=== PATIENT | female | born 1995 | race Caucasian/White ===

== ENCOUNTER 2023-11-14 08:00 | Outpatient (CLI) | payer OTHER ==
[2023-11-14 16:05] LABS: BILIRUBIN,URINE NEGATIVE (NEGATIVE); GLUCOSE, URINE (UA) NEGATIVE (NEGATIVE); KETONES,URINE (UA) NEGATIVE (NEGATIVE); LEUKOCYTE ESTERASE, URINE NEGATIVE (NEGATIVE); NITRITE,URINE NEGATIVE (NEGATIVE); OCCULT BLOOD,URINE NEGATIVE (NEGATIVE); PROTEIN,URINE NEGATIVE (NEGATIVE); UROBILINOGEN,URINE 0.2 (NORMAL) E.U./dL (NORMAL)
[2023-11-14 16:15] LABS: BACTERIA,URINE Moderate /HPF (None Seen); CLARITY,URINE CLEAR (CLEAR); RBC,URINE None Seen /HPF (0-5); SQUAMOUS EPITHELIAL CELL,UR FEW Squamous (<= Few)
== END 2023-11-14 23:59 | disposition home or self-care (01) ==
LOC: LAB.WC 08:00
PROVIDERS: ATTEND Obstetrics & Gynecology
DX: Z34.90 Encounter for supervision of normal pregnancy, unspecified, unspecified trimester (principal)
CPT/HCPCS: 81001; 87086

== ENCOUNTER 2024-06-25 08:03 | Inpatient (IN) ==
[2024-06-25] MEDS ORDERED: miSOPROStoL 200 MCG TABLET BC PRN (08:31)
[2024-06-25] MEDS ORDERED: OXYTOCIN 10 UNIT/ML VIAL IM PRN (08:31)
[2024-06-25] MEDS ORDERED: lidocaine 1% 20 ML MDV ID PRN (08:31)
[2024-06-25] MEDS ORDERED: NIFEdipine 10 MG CAPSULE PO PRN (08:31)
[2024-06-25] MEDS ORDERED: OXYTOCIN/SODIUM CHLORIDE 500 ML IV PRN (08:31)
[2024-06-25] MEDS ORDERED: ONDANSETRON ODT 4 MG TABLET PO PRN (08:31)
[2024-06-25] MEDS ORDERED: miSOPROStoL 200 MCG TABLET PR PRN (08:31)
[2024-06-25] MEDS ORDERED: SODIUM CHLORIDE FLUSH 0.9% 10 ML SYRINGE IVP PRN (08:31)
[2024-06-25] MEDS ORDERED: hydrALAZINE INJ 20 MG/ML VIAL IVP PRN (08:31)
[2024-06-25] MEDS ORDERED: AMPICILLIN 2 GM in SODIUM CHLORIDE 0.9% MINIBAG 100 ML IV ONE (08:31)
[2024-06-25] MEDS ORDERED: LABETALOL 20 MG/4 ML SYRINGE IVP PRN ×3 (08:31)
[2024-06-25] MEDS ORDERED: TRANEXAMIC ACID IN NACL 1,000 MG/100 ML BAG IV PRN (08:31)
[2024-06-25] MEDS ORDERED: TERBUTALINE 1 MG/ML VIAL SUBQ PRN (08:31)
[2024-06-25] MEDS ORDERED: fentaNYL 100 MCG/2 ML VIAL IVP PRN (08:31)
[2024-06-25] MEDS ORDERED: METHYLERGONOVINE 0.2 MG/ML VIAL IM PRN (08:31)
[2024-06-25] MEDS ORDERED: SODIUM CHLORIDE FLUSH 0.9% 10 ML SYRINGE IVP SCH (09:00)
[2024-06-25 09:15] LABS: BASOPHILS # (AUTO) 0.1 10^3/uL (0.0-0.1); BASOPHILS % (AUTO) 0.6 %; EOSINOPHILS # (AUTO) 0.1 10^3/uL (0.0-0.7); EOSINOPHILS % (AUTO) 1.2 %; HCT - HEMATOCRIT 36.3 % (37.0-47.0); HGB - HEMOGLOBIN 11.8 g/dL (12.0-16.0); LYMPHOCYTES % (AUTO) 19.2 %; MEAN CORPUSCULAR HGB CONC 32.5 g/dL (32.0-36.0); MEAN CORPUSCULAR VOLUME 83.1 fL (81.0-99.0); MEAN PLATELET VOLUME 10.4 fL (7.9-10.8); MONOCYTES # (AUTO) 0.6 10^3/uL (0.0-1.0); MONOCYTES % (AUTO) 5.5 %; NEUTROPHILS # (AUTO) 7.7 10^3/uL (1.5-6.6); NEUTROPHILS % (AUTO) 72.6 %; PLT - PLATELET COUNT 221 10^3/uL (130-450); RED BLOOD COUNT 4.37 10^6/uL (4.20-5.40); RED CELL DISTRIBUTION WIDTH 14.6 % (12.0-15.0); WHITE BLOOD COUNT 10.6 x10^3/uL (4.8-10.8)
[2024-06-25 09:38] LABS: ALBUMIN 3.7 g/dL (3.2-5.5); ALBUMIN/GLOBULIN RATIO 1.2 (1.0-2.2); BILIRUBIN,TOTAL 1.2 mg/dL (0.2-1.0); CALCIUM 9.2 mg/dL (8.5-10.3); CREATININE 0.6 mg/dL (0.6-1.3); POTASSIUM 3.6 mmol/L (3.5-4.5); TOTAL PROTEIN 6.7 g/dL (6.4-8.9)
[2024-06-25] MEDS: miSOPROStoL 100 MCG TABLET VG SCH ×2 (09:53→14:00)
[2024-06-25] MEDS ORDERED: AMPICILLIN 1 GM in SODIUM CHLORIDE 0.9% MINIBAG 100 ML IV SCH (13:00)
--- NOTE | 2024-06-25 13:31 | PHARMACY PROGRESS NOTE ---
Best Possible Medication History Admit Date and Time: 06/25/24 [id number] Home Medications Medication Instructions Recorded Confirmed Type vits no.126-ferrous fum 1 tab PO DAILY 12/14/23 06/25/24 History 28 mg iron-folic acid 800 mcg tablet (Classic ) cetirizine 10 mg tablet (Zyrtec) 10 mg PO DAILY PRN allergy symptoms 06/25/24 06/25/24 History Processed by: Pharmacy (Medication reconciliation completed by Robotics SpecialistLynn) Medications reviewed in ED?: No Medication History completed: Yes Patient Interview: Completed Secondary Source(s): Insurance records [facility] Statement: As the person ultimately responsible for medication therapy, providers are able to order a medication from an existing home medication list in [facility] via the "Reconcile Routine" prior to Confirmation of that medication by ground support equipment fitter. Such practice is discouraged except when the physician, in their clinical judgment, deems that a medical need exists for a medication without regard to previous use.
[2024-06-25] MEDS: AMPICILLIN 2 GM in SODIUM CHLORIDE 0.9% MINIBAG 100 ML IV ONE (18:00)
[2024-06-25] MEDS: LACTATED RINGERS 1,000 ML IV PRN (18:00)
--- NOTE | 2024-06-25 20:54 | HISTORY & PHYSICAL EXAMINATION ---
Admit History Visit Reason Visit Reason: Other (admitted for induction at 39 weeks. ) : 2 Parity: 1 Care: positive [facility] Risk/History: positive None Complications This : positive Other (large for gestational age fetus.) Smoking Status: Former smoker Mother's Labs GBS: positive Group B Strep Positive Other Maternal History Other Maternal History: presents for induction of labor. baby large. Mom here from out of town to help. 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 Has child at home. Induction of labor reviewed. wishes to avoid catheter in cervix. that was awful last time. Seems she disassociated for her labor and does not remember anything. agrees miso ago. does desire epidural. last US showed a large baby: biometrics: Biparietal diameter: 9.1 cm, 36 weeks and 6 days, 99% Head circumference: 34.3 cm, 39 weeks and 4 days, greater than 99% Abdominal circumference: 32.5 cm, 36 weeks and 3 days, 99% Femur length: 6.6 cm, 33 weeks and 6 days, 51% Estimated gestational age from initial scan: 33 weeks and 3 days Composite gestational age from present scan: 36 weeks and 5 days Estimated weight and percentile: 2856 g, 98% Measurement variability in biometric dating: +/- 10 days from 12-20 weeks gestation, +/- 2 weeks from 20-30 weeks gestation, +/- 3 weeks at 30 weeks gestation or more. IMPRESSION: Living gestation in breech presentation. Suspected superior placental succenturiate lobe. Normal SONA. Fetus remains large for gestational age with EFW at the 98th percentile based on provided working DANAE of 06/30/2024. 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 They are from [place] and [place]. On [place] since Dec 2022, were also her for a few years previously. Son is 2. - H/o A1DM prior - delivered at 38wk at [place] in [place], 9lb1oz. Early A1C 5.0. Elevated 1hr, 3hr wnl. - Suspected macrosomia - 96.7%tile on anatomy US - growth US 04/22 EFW 2182g, > 99th%tile. - growth US 05/15 EFW 2856 g, 98% and breech - H/o PPD/anxiety - was never on medications, but saw counselor Pre- Weight:176.8 BMI: 30.46 Blood type: O+ Rh: + Antibody: neg CBC: PLT 308 HCT 39.3 HGB 13.1 RUB: immune VZV: immune HBsAg: neg HepC: NR RPR: NR HIV: NR PAP: 02/08/21 - Normal, will obtain PP GC/CT: 12/13 negative HSV:denies in self and partner Genetic testing: [id number] Negative AFP- Negative Covid: 12/2023 Flu:with family at pharmacy 12/20 RSV 05/30/24 requested given 1 yo. FAS: ordered 12/13 Placenta:anterior w/o previa Cord:3VC SONA:17cm EFW:419.3g 96.7% 50gm OGCT: 150 3HR GTT:84 157,152,118 p TDAP:04/05 Breast Pump:04/05 tour: 04/05 3rd trimester CBC- 36.9/287 GBS: ++POS Delivery plan: vaginal delivery at term. She expects likely 2 weeks early. Contraception: declines, will be deploying. OB Visit Log Initial Weight: 176 lb 12.8 oz Date EGA Weight BP Fundal ht Pres HR Movement CTX Edema Cerv Dil Cerv Eff % Sta 12/14/23 11w 4d 174 lb 2 oz(-2 lb 10.8 oz) 110 167 01/11/24 15w 4d 175 lb 8 oz(-1 lb 4.8 oz)175 lb 8 oz(-1 lb 4.8 o z) 110 160 active 02/09/24 19w 5d 178 lb(+1 lb 3.2 oz) 110 155 active 03/07/24 23w 4d 184 lb(+7 lb 3.2 oz) 144 active 04/05/24 27w 5d 189 lb 4 oz(+12 lb 7.2 oz) 29 1 45 active absent absent 04/17/24 29w 3d 188 lb(+11 lb 3.2 oz) 30 133 ac tive occasional 05/01/24 31w 3d 191 lb(+14 lb 3.2 oz) 33 145 ac tive absent absent 05/15/24 33w 3d 198 lb(+21 lb 3.2 oz) 36 Breech 130 ac tive absent absent 05/30/24 35w 4d 200 lb(+23 lb 3.2 oz) 37 130 ac tive absent absent 06/06/24 36w 4d 201 lb(+24 lb 3.2 oz) 38 cephalic 145 ac tive absent absent 06/13/24 37w 4d 202 lb(+25 lb 3.2 oz) cephalic 130 activ e absent absent 06/20/24 38w 4d 203 lb(+26 lb 3.2 oz) 41 cephalic 135 active occas ional absent 2 0 Notes Visit Date: 06/20/24 Last Updated by: Theron Pinon MD Overall feeling well, here today with her mom. Has been having intermittent contractions. Would like SVE today. /high, moderate/posterior. She is scheduled for elective IOL on 06/25. We discussed induction process and consent was signed. We discussed suspected macrosomia, including maternal/ risks. EFW approximately 4200g on exam today, she feels that this baby is bigger than her last which was 9lb1oz. Discussed we would watch her labor progress closely, may recommend delivery if labor not progressing appropriately. We discussed possible increased risk for shoulder dystocia. Discussed risk of her degree maternal tears, brachial plexus injury/brain injury/. She would like to avoid using the cervical ripening balloon if possible, reports she had it last time and it came out in just an hour, she had a severe pain and blacked out. Discussed she can schedule visit for membrane sweep on Monday if she desires. Labor/ movement precautions were reviewed. HPI Diagnosis/Indication for NST: Other (here for labor induction) Current : Vital Signs Temperature 37.2 C 06/25/24 08:48 Pulse Rate 92 06/25/24 08:48 Respiratory Rate 17 06/25/24 08:48 Blood Pressure 119/83 06/25/24 08:48 NST Procedure NST Procedure: Reactive for of 32 weeks gestation or more. NST tracing contains at least two heart rate accelerations that are at least 15 beats per minute above the baseline rate and lasting at least 15 seconds from onset to return to baseline within a twenty minute period. Results and Plan Plan: proceed with labor induction Meds/Allgy Home Medications Ambulatory Orders Medication Instructions Recorded Confirmed vits no.126-ferrous fum 1 tab PO DAILY 12/14/23 06/25/24 28 mg iron-folic acid 800 mcg tablet (Classic ) cetirizine 10 mg tablet (Zyrtec) 10 mg PO DAILY PRN allergy symptoms 06/25/24 06/25/24 Allergies Allergies Allergy/AdvReac Type Severity Reaction Status Date / Time No Known Drug Allergies Allergy Verified 05/15/24 13:04 PFSH Active Problems All Active Problems (Updated 06/25/24 @ 21:06 by Lara Sandra MD) Encounter for elective induction of labor (Acute) Macrosomia (Acute) Glucose intolerance of (Acute) Supervision of other normal (Acute) Medical History Medical History Acute sinusitis, unspecified (04/24/23) History of depression Kidney infection GDM (gestational diabetes mellitus) Family History Family History Maternal grandmother Diabetes Breast cancer Social History Social History (Updated 06/25/24 @ 21:03 by Lara Sandra MD) Smoking Status: Former smoker If you are a former smoker, when did you quit? (Date/Year): 10/2023 How many cigarettes a day do you smoke? (20 cigarettes=1 Pk): 10 Second hand tobacco smoke exposure: No Do you dip or chew tobacco?: No Do you vape?: No Patient requests smoking cessation consult: No Initiate information on smoking cessation: No Living arrangement: At home Marital Status: Living Condition: With family Relationship: Living Situation Details: lives with her Clarence and 2yo son. 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 Level: Independent Do you feel safe in your home environment?: Yes Suffered physical, verbal, emotional, or financial abuse?: No ETOH Use: None Substance Use: denies use Are you sexually active?: Yes Control Method: None Occupation: [employer]. Service: Yes Dates of Service: current POLST Patient has POLST: No Review of Systems Cardiovascular Denies: Irregular heart rate, swelling of feet/ankles or shortness of breath with exertion Respiratory Reports: Cough; Denies: Shortness of breath Gastrointestinal Denies: Nausea or Vomiting Neurological Denies: Headache Physical Abdominal Exam Vital Signs: Temp Pulse Resp BP 37.2 C 92 17 119/83 06/25/24 08:48 06/25/24 08:48 06/25/24 08:48 06/25/24 08:48 Contraction Frequency (min/apart): none Uterine Resting Tone: positive Soft Monitoring Heart Rate Baseline: 135 Strip Review: positive Category I Presentation Presentation: positive Vertex (confirmed by US) Vaginal Exam Membranes: positive Membranes intact Dilation (in cm): unable to reach on my exam. [address] Pinon Station: positive -3 Cervical Position: positive Posterior Speculum Exam Speculum Exam Performed: positive No Plan for Labor Plan For Labor I expect patient to be DC'd or transferred within 96 hours.: Yes Plan for Labor: This note is from 9:30 am. 06/25/24 Conclusion/Plan Problem List (1) Encounter for elective induction of labor: Plan: Admitted for labor induction. Will start with miso 25 mcg vaginally. (2) Macrosomia: Plan: based on last US would be about 4500 grams now. so about 10 pounds. first baby was 9lb 1oz. patient estimates this baby about 9lb 5 oz. I think about 9.5 pounds. Will watch labor curve closely. Plan Miso. Lab Results Lab results reviewed: Yes 06/25/24 08:40 06/25/24 08:40
[2024-06-25] MEDS ORDERED: ROPIVACAINE 0.2% 200 MG/100 ML BAG EP ONE (20:55)
[2024-06-25] MEDS ORDERED: LIDOCAINE 2%-EPI 1:100000 20 ML MDV ONE (20:55)
--- NOTE | 2024-06-25 21:14 | PROVIDER PROGRESS NOTE ---
Labor Progress Note Uterine Monitoring Uterine Monitoring Mode: positive External toco Contraction Intensity: positive Mild to moderate and Other (still no contractions at 1330. 4 hrs after first dose of miso 25 mcg vaginally) Uterine Resting Tone: positive Soft Monitoring Monitor Mode: positive External ultrasound Heart Rate Baseline: 135 Heart Rate Variability: positive Moderate (6-25 bmp) Decelerations: positive None Strip Review: positive Category I Vaginal Exam Dilation (in cm): deferred Labor Progress Note Labor Progress Note/Additional Text: will give 50 mcg miso vaginally as no response to first dose of 25. 06/25/24 13:30
--- NOTE | 2024-06-25 21:16 | PROVIDER PROGRESS NOTE ---
Labor Progress Note Uterine Monitoring Uterine Monitoring Mode: positive External toco Contraction Intensity: positive Mild to moderate (every 2 min) Uterine Resting Tone: positive Soft Monitoring Monitor Mode: positive External ultrasound Heart Rate Variability: positive Moderate (6-25 bmp) Accelerations: positive Present, 15x15 Decelerations: positive None Strip Review: positive Category I Vaginal Exam Dilation (in cm): deferred Labor Progress Note Labor Progress Note/Additional Text: just starting to get uncomfortable with contractions. will start Ampicillin for gbs now. reassess at 10pm. epidural whenever she requests. 06/25/24 17:45
--- NOTE | 2024-06-25 21:17 | PROVIDER PROGRESS NOTE ---
Progress Note Progress Note Progress Note: called to RN to check in. patient about to get epidural. doing well. no or maternal concerns. Will come in to reassess once comfortable and ready for second dose Amp. both of which will be around 10 pm.
[2024-06-25] MEDS: AMPICILLIN 1 GM in SODIUM CHLORIDE 0.9% MINIBAG 100 ML IV SCH (21:43)
[2024-06-25] MEDS ORDERED: NALOXONE 0.4 MG/ML VIAL IVP PRN (21:52)
[2024-06-25] MEDS ORDERED: ROPIVACAINE 0.2% 200 MG/100 ML BAG EP PRN (21:52)
[2024-06-25] MEDS ORDERED: ONDANSETRON 4 MG/2 ML VIAL IVP PRN (21:52)
[2024-06-25] MEDS ORDERED: ePHEDrine 50 MG/ML VIAL IVP PRN (21:52)
--- NOTE | 2024-06-25 21:52 | ANESTHESIA PROCEDURE NOTE ---
Pre-Anesthesia VS, & Labs Diagnosis Surgical Diagnosis:: Active Labor Procedure Procedure: Vaginal delivery Vitals Vital Signs: Temp Pulse Resp BP 37.2 C 92 17 119/83 06/25/24 08:48 06/25/24 08:48 06/25/24 08:48 06/25/24 08:48 NPO NPO: Other (clear liquids) Is Patient ?: Yes Lab Results Current Lab Results: Laboratory Tests 06/25/24 08:40: WBC 10.6, RBC 4.37, Hgb 11.8 L, Hct 36.3 L, MCV 83.1, MCH 27.0, MCHC 32.5, RDW 14.6, Plt Count 221, MPV 10.4, Neut # (Auto) 7.7 H, Lymph # (Auto) 2.0, [place] # (Auto) 0.6, Eos # (Auto) 0.1, Baso # (Auto) 0.1, Absolute Nucleated RBC 0.00, Nucleated RBC % 0.0, Sodium 133 L, Potassium 3.6, Chloride 102, Carbon Dioxide 21, Anion Gap 10.0, BUN 11, Creatinine 0.6, Estimated GFR (MDRD) 117, Glucose 138 H, Calcium 9.2, Total Bilirubin 1.2 H, AST 15, ALT 9 L, Alkaline Phosphatase 130 H, Total Protein 6.7, Albumin 3.7, Globulin 3.0, Albumin/Globulin Ratio 1.2, Blood Type O POSITIVE, Antibody Screen NEGATIVE Lab results reviewed: Yes 06/25/24 08:40 06/25/24 08:40 Meds/Allgy Home Medications Ambulatory Orders Medication Instructions Recorded Confirmed vits no.126-ferrous fum 1 tab PO DAILY 12/14/23 06/25/24 28 mg iron-folic acid 800 mcg tablet (Classic ) cetirizine 10 mg tablet (Zyrtec) 10 mg PO DAILY PRN allergy symptoms 06/25/24 06/25/24 Allergies Allergies Allergy/AdvReac Type Severity Reaction Status Date / Time No Known Drug Allergies Allergy Verified 05/15/24 13:04 PFSH Active Problems All Active Problems Encounter for elective induction of labor (Acute) Macrosomia (Acute) Glucose intolerance of (Acute) Supervision of other normal (Acute) Medical History Medical History Acute sinusitis, unspecified (04/24/23) History of depression Kidney infection GDM (gestational diabetes mellitus) Family History Family History Maternal grandmother Diabetes Breast cancer Social History Social History Smoking Status: Former smoker If you are a former smoker, when did you quit? (Date/Year): 10/2023 How many cigarettes a day do you smoke? (20 cigarettes=1 Pk): 10 Second hand tobacco smoke exposure: No Do you dip or chew tobacco?: No Do you vape?: No Patient requests smoking cessation consult: No Initiate information on smoking cessation: No Living arrangement: At home Marital Status: Living Condition: With family Relationship: Living Situation Details: lives with her Clarence and 2yo son. 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 Level: Independent Do you feel safe in your home environment?: Yes Suffered physical, verbal, emotional, or financial abuse?: No ETOH Use: None Substance Use: denies use Are you sexually active?: Yes Control Method: None Occupation: [employer]. Service: Yes Dates of Service: current POLST Patient has POLST: No Anesthesia Exam (Expanded) Exam General: Alert, Oriented x3 and Cooperative Dental: WNL Mouth Openin Fingerbreadth Neck Mobility: Normal Mallampati classification: II Thyromental Distance: 4-6 cm Plan Plan Anesthesia Type: Epidural Consent for Procedure(s) Verified and Reviewed: Yes Code Status: Attempt Resuscitation ASA Classification ASA classification: 2-Mild systemic disease Is this case an emergency?: No
--- NOTE | 2024-06-25 22:26 | PROVIDER PROGRESS NOTE ---
Labor Progress Note Uterine Monitoring Uterine Monitoring Mode: positive External toco Contraction Frequency (min/apart): 2-3 Contraction Intensity: positive Moderate Monitoring Monitor Mode: positive External ultrasound Heart Rate Baseline: 135 Heart Rate Variability: positive Moderate (6-25 bmp) Accelerations: positive Present, 15x15 Decelerations: positive None Strip Review: positive Category I Vaginal Exam Dilation (in cm): 4 cm with a firmish ring Effacement (%): 70 Station: -3 Cervical Position: Midposition Labor Progress Note Labor Progress Note/Additional Text: comfortable with her epidural. second Ampicillin in. agrees to AROM. this is done with exam and fluid is clear. moderate amount. baby still high but well applied to cervix. Plan to recheck in about 2 hours by RN and see if she needs pitocin.
[2024-06-25] MEDS ORDERED: LACTATED RINGERS 1,000 ML IV SCH (23:00)
[2024-06-26] MEDS: miSOPROStoL 100 MCG TABLET VG SCH (00:33)
[2024-06-26] MEDS: OXYTOCIN/SODIUM CHLORIDE 500 ML IV SCH (00:53)
[2024-06-26] MEDS ORDERED: NALOXONE 0.4 MG/ML VIAL IVP PRN (04:15)
[2024-06-26] MEDS ORDERED: LABETALOL 20 MG/4 ML SYRINGE IVP PRN ×2 (04:15)
[2024-06-26] MEDS ORDERED: OXYTOCIN/SODIUM CHLORIDE 500 ML IV PRN (04:15)
[2024-06-26] MEDS ORDERED: NIFEdipine 10 MG CAPSULE PO PRN (04:15)
[2024-06-26] MEDS ORDERED: LABETALOL 5 MG/1 ML 20 ML MDV IVP PRN (04:15)
[2024-06-26] MEDS ORDERED: hydrALAZINE INJ 20 MG/ML VIAL IVP PRN ×2 (04:15)
--- NOTE | 2024-06-26 04:28 | DELIVERY NOTE ---
Delivery Note Labor Labor: positive Augmented by oxytocin Infant Delivery Method Delivery Method: positive Spontaneous vaginal delivery Cervical Ripening Method Cervical Ripening Method: positive Misoprostil Presentation Presentation: positive Vertex and OA - occiput anterior Nuchal Cord Nuchal Cord: positive Present and Reduced Amniotic Fluid Description Amniotic Fluid Description: positive Moderate meconium (after delivery of the head) Episiotomy Type Episiotomy Type: positive None Laceration Laceration: positive None Delivery Outcome Delivery Date: 06/26/24 Delivery Time: 03:53 Delivery Outcome: positive Livebirth : positive Placed in direct skin contact with mother, Suctioned, Bulb syringe, Stimulated and Howell used sex: positive Male Cord Cord: positive 3 vessels Placenta Placenta: positive Intact, Spontaneous and Other (accessory lobe intact. delivered before the cord was cut) Estimated Blood Loss Estimated Blood Loss (in cc): 500 Post Delivery Events Post Delivery Events: positive No post delivery events Delivery Comments (Free Text/Narrative) Delivery Comments (Free Text/Narrative): Presented for induction 8 am. Miso 25 and nothing happened. miso 50 and lots of contractions every 2-3 minutes. At 9 pm epidural placed. At 10 pm. still only 4 cm. AROM and clear fluid. At midnight, no change. pitocin started. Patient was complete and I was called for delivery at 0326. We got her ready for delivery and she pushed for 10 minutes. Baby delivered OA. Cord around neck x 1 easily reduced. Meconium, very dark with delivery of head. We waited for delivery of shoulders for another contraction and then they came out without dystocia. Baby Chi placed on Nikole's belly. She wanted delayed cord clamping. Her mom called her on the [place] near [facility] and then talked. After about 10 min, there was no bleeding at all and the placenta was in the cervix. I clamped the cord near the placenta and delivered it. About 500 cc of blood came out. Uterus contracted well with massage. Pitocin started in IV. Cord clamped near baby and other clamp moved up. Patient's mom cut the cord all while dad was still on phone. Baby was weighed so dad could know. 4.2 kg, 9#7oz. Apgars 8/9. no lacerations at all. Patient says she had been doing perineal massage with a device she bough from [facility] and felt it had helped. Patient cleaned up and bed put back together. no complications.
[2024-06-26] MEDS: IBUPROFEN 600 MG TABLET PO PRN (06:34)
[2024-06-26] MEDS: ACETAMINOPHEN 500 MG TABLET PO PRN (07:14)
[2024-06-26] MEDS: CETIRIZINE 10 MG TABLET PO PRN (08:44)
[2024-06-26] MEDS: DOCUSATE SODIUM 100 MG CAPSULE PO SCH (08:44)
[2024-06-26] MEDS: SIMETHICONE CHEW 80 MG TABLET PO PRN (11:50)
[2024-06-27] MEDS: ACETAMINOPHEN 500 MG TABLET PO PRN (06:55)
--- NOTE | 2024-06-27 11:55 | Discharge Summary ---
Discharge Summary Admit Date: 06/25/24 Discharge Date: 06/27/24 Discharging Provider: Theron Pinon MD HOSPITAL COURSE Hospital Course: Admission Diagnosis: - SIUP at 39wk - GBS pos - Suspected macrosomia Discharge Diagnosis: - Same, delivered Procedures: Hospital Course: Nikole presented ta 39wk for elective induction of labor. She underwent cervical ripening with misoprostol, and was further augmented with AROM and pitocin. She had an uncomplicated with an EBL 500cc, no lacerations. Her course has been uncomplicated. Condition on Discharge: SUBJECTIVE: day 1 s/p She feels well. Pain is well controlled with current medications. The baby is doing well. She is ambulating well, tolerating normal diet, urinating without difficulty. Lochia is reported as light. OBJECTIVE: Vital signs reviewed GENERAL: NAD CHEST: non labored respirations ABD: soft, non tender, fundus firm EXT: no lower extremity edema; No evidence of DVT LAB & IMAGING STUDIES: See below PLAN: Plan for discharge home with follow up in 1 week, OK for virtual visit. Reviewed home care instructions and medications. Patient counseled regarding signs and symptoms of infection, excessive bleeding, vaginal rest and activity restrictions. Preeclampsia precautions were reviewed. Discussed that additional support is available in our clinic if needed. ALLERGIES Allergies Allergy/AdvReac Type Severity Reaction Status Date / Time No Known Drug Allergies Allergy Verified 05/15/24 13:04 MEDICATIONS Ambulatory Orders Medication Instructions Recorded Confirmed vits no.126-ferrous fum 1 tab PO DAILY 12/14/23 06/25/24 28 mg iron-folic acid 800 mcg tablet (Classic ) cetirizine 10 mg tablet (Zyrtec) 10 mg PO DAILY PRN allergy symptoms 06/25/24 06/25/24 PHYSICAL EXAM AT DISCHARGE Vital Signs: Vital Signs x48h Temp Pulse Resp BP Pulse Ox 06/27/24 12:13 98.1 F 85 20 125/81 99 06/27/24 09:00 98.4 F 98 17 125/80 06/27/24 06:52 207.1 F H 77 17 128/77 LABS 06/25/24 08:40 06/25/24 08:40 FOLLOW UP Follow Up: [facility] clinic in 1 week. TIME SPENT Time Spent in Discharge (Minutes): 20 Discharge Plan Discharge Patient Disposition: Home, Self Care Prescriptions: Continued cetirizine [Zyrtec] 10 mg tablet 10 mg PO DAILY PRN (Reason: allergy symptoms) Classic 28 mg iron- 800 mcg tablet 1 tab PO DAILY Print Language: Lao Patient Instructions: Vaginal After, Childbirth Breast Care, Depression , Change Expect Parents
[2024-06-27 20:52] VITALS: BP 129/84; TEMP 98.6; O2SAT 98
--- NOTE | 2024-06-27 22:46 | Labor Flowsheet ---
Labor Flowsheet Datetime Report Generated by CPN: 06/27/2024 22:45 Datetime: 06/27/2024 20:51 VITAL SIGNS NBP Sys/Ursula/Mean (mmHg): 129 : 84 : 94 Pulse: 90 Datetime: 06/26/2024 03:59 Stage of : Recovery Membranes Ruptured Date/Time: 06/25/2024 22:14 Datetime: 06/26/2024 03:53 Comments: baby Datetime: 06/26/2024 03:51 UTERINE ACTIVITY Monitor Mode: Palpation Frequency (min): 2 ASSESSMENT A Monitor Mode: Telemetry FHR Baseline Rate : 130 Variability: Moderate 6-25 bpm Accelerations: 15X15 Decelerations: Prolonged Datetime: 06/26/2024 03:45 Quality: Strong Pattern: Normal: <= 5 Contractions in 10 Minutes Resting Tone (Palpate): Relaxed Datetime: 06/26/2024 03:43 STAGE 2 Stage 2 Comments: pushing starts Datetime: 06/26/2024 03:41 Communication Comments: bradley removed Datetime: 06/26/2024 03:39 SpO2 (%): 99 LaborFlag: Labor Datetime: 06/26/2024 03:30 Duration (sec): 60-90 Datetime: 06/26/2024 03:25 VAGINAL EXAM Dilatation (cm): 10.0 Effacement (%): 100 Station: 2 Exam by: Emily RN Datetime: 06/26/2024 02:50 MEDICATIONS Pitocin (milliunits): Increased to @ 6 Datetime: 06/26/2024 02:49 Temperature (C): 36.9 Datetime: 06/25/2024 23:30 Contraction Comments: unable to determin in pt position Datetime: 06/25/2024 22:14 Membranes Rupture Method: Artificial Amniotic Fluid Color: Clear Amniotic Fluid Amount: Moderate Datetime: 06/25/2024 21:10 ANESTHESIA Epidural Procedure: Test Dose Datetime: 06/25/2024 21:04 PROCEDURE TIME OUT Procedure Verify: Correct Patient Identity; Accurate Procedure Consent Form; Agreement on Procedure to be Done; Correct Patient Position; Safety Precautions Based on Patient History or Medication Use Anesthesia Comments: local given Datetime: 06/25/2024 20:50 COMMUNICATION Provider Notified (Name): Dr. Sandra Notification Reason: Status Update Datetime: 06/25/2024 19:00 Category: Category I PAIN Pain Scale: 4 Pain Presence: Intermittent Pain Type: Cramping Pain Location: Abdomen Pain Relief Measures: Comfort Measures Pain Coping: Talking Through Contractions Datetime: 06/25/2024 18:56 Patient Care Comments: Pt in tub for comfort Datetime: 06/25/2024 18:51 I/O Interventions: Up to BR Datetime: 06/25/2024 18:02 Patient Position/Activity: Left Tilt Datetime: 06/25/2024 18:00 Respirations: 17 Antibiotics: Ampicillin IV 2 Gm Datetime: 06/25/2024 16:39 Monitor Interventions for UA: [place] Adjusted Datetime: 06/25/2024 15:00 Temperature Route: Oral Datetime: 06/25/2024 14:00 Membrane Status: Intact Cervical Ripening Agents: Cytotec @ Datetime: 06/25/2024 09:27 Cervix, Position: Posterior Datetime: 06/25/2024 08:40 PATIENT CARE IV/Blood Work: IV Started
== END 2024-06-27 22:00 | disposition home or self-care (01) | DRG 807 ==
LOC: FBP 08:03 → WFO 08:03 → FBP 08:05
PROVIDERS: ADMIT Obstetrics & Gynecology; ATTEND Obstetrics & Gynecology
DX: Z87.891 Personal history of nicotine dependence; O77.0 Labor and delivery complicated by meconium in amniotic fluid; O99.824 Streptococcus B carrier state complicating childbirth; Z37.0 Single live birth; O69.81X0 Labor and delivery complicated by cord around neck, without compression, not applicable or unspecified; O36.63X0 Maternal care for excessive fetal growth, third trimester, not applicable or unspecified; Z3A.39 39 weeks gestation of pregnancy